=== PATIENT | male | born 1945 | race Caucasian/White ===

== ENCOUNTER 2021-07-21 19:50 | Observation (INO) | payer MEDICARE, SELFPAY ==
[2021-07-21 20:03] VITALS: BP 210/94; PULSE 97; RESP 17; TEMP 36.6; O2SAT 98; BMI 32.3
[2021-07-21] MEDS: GLUCAGON,HUMAN RECOMBINANT 1 MG/ML VIAL IV (20:30)
--- NOTE | 2021-07-21 21:39 | PC.NURSE ---
Pt with pork chop stuck in esophagus, tried glucagon with soda and failed to advance food.
[2021-07-21 21:48] LABS: Add Manual Diff / Slide Review NO; Basophils Absolute Auto 0 /uL (0-100); Basophils Percent Auto 0.3 % (0-2); Eosinophils Absolute Auto 100 /uL (0-450); Eosinophils Percent Auto 0.6 % (2-4); Hematocrit 35.8 % (41-53); Hemoglobin 12.1 g/dL (13.5-17.5); Lymphocytes Absolute Auto 1100 /uL (1100-4500); Lymphocytes Percent Auto 11.2 % (25-40); Mean Corpuscular HGB Conc 33.8 % (30-36); Mean Corpuscular Hemoglobin 29.8 PG (26-34); Mean Corpuscular Volume 88.2 fL (80-100); Monocytes Absolute Auto 600 /uL (0-900); Monocytes Percent Auto 6.4 % (3-14); Neutrophils Absolute Auto 8200 /uL (1500-7000); Neutrophils Percent Auto 81.5 % (50-75); Platelet Count 182 X10^3/uL (150-400); Red Blood Cell Count 4.06 X10^6/uL (4.5-5.9); Red Cell Distribution Width 13.9 % (11.6-14.8)
[2021-07-21 21:58] LABS: COVID19 -Nasal RAPID Negative (Negative)
[2021-07-21 22:05] LABS: BUN Creatinine Ratio 20.4 (6-22); Blood Urea Nitrogen 23 mg/dL (9-20); Calcium 9.4 mg/dL (8.4-10.2); Carbon Dioxide 28 mmol/L (22-32); Chloride 104 mmol/L (98-107); Estimated Glomerular Filt Rate > 60.0 mL/min (>60); Glucose 158 mg/dL (80-110); HEMOLYSIS 35 (0-50); Potassium 4.1 mmol/L (3.4-5.1); Sodium 140 mmol/L (137-145)
--- NOTE | 2021-07-21 22:16 | ED.SKABFB ---
HPI - Skin/Abscess/Foreign Bdy General Chief complaint: Skin/Abscess/Foreign Body Stated complaint: food stuck in bottom of esophagus Time Seen by Provider: 07/21/21 21:28 Source: patient Mode of arrival: Ambulatory History of Present Illness HPI narrative: 76-year-old male who is here for evaluation of what he thinks is a piece of food stuck in his esophagus. He states that he is missing quite a bit of his teeth and he did take a rather large bite of a pork chop. He did not chew it very well. Swallowed it he states that felt like it got stuck in his throat. Since that time he has been spitting up his saliva. He tried warm soda at home. Tried to make himself throw up another these were successful. He is having no problems breathing. He does have a history of reflux disease. Has never had endoscopy before. Has had issues with things getting stuck in the past but he states that he has always been able to make himself throw up and take care of the situation. Related Data Home Medications Medication Instructions Recorded Confirmed aspirin 81 mg tablet,delayed 81 mg PO DAILY 07/21/21 07/21/21 release finasteride 5 mg tablet 5 mg PO DAILY 07/21/21 07/21/21 losartan 25 mg tablet 25 mg PO DAILY 07/21/21 07/21/21 simvastatin 40 mg tablet 40 mg PO DAILY 07/21/21 07/21/21 terazosin 10 mg capsule 10 mg PO DAILY 07/21/21 07/21/21 Allergies Allergy/AdvReac Type Severity Reaction Status Date / Time No Known Drug Allergies Allergy Verified 07/21/21 20:05 Review of Systems ENT Ears, Nose, Mouth, and Throat: Reports system reviewed and no additional complaints, except as documented Cardiovascular Cardiovascular: Denies chest pain Respiratory Respiratory: Reports as per HPI and Reports system reviewed and no additional complaints, except as documented Gastrointestinal Gastrointestinal: Reports as per HPI and Reports system reviewed and no additional complaints, except as documented Hematologic/Lymphatic On Anticoagulants: No Patient History Medical History Hypertension Surgical History H/O aortic valve replacement with tissue graft Social History Smoking Status: Never smoker Smoking Status: Never smoker alcohol intake frequency: other Substance Use Type: does not use Exam Initial Vital Signs Initial Vital Signs: Vital Signs Temperature 98 F 07/21/21 20:03 Pulse Rate 97 H 07/21/21 20:03 Respiratory Rate 17 07/21/21 20:03 Blood Pressure 210/94 H 07/21/21 20:03 Pulse Oximetry 98 07/21/21 20:03 HENMT Head: normal to inspection and normocephalic Resp Effort & Inspection: normal respiratory effort Auscultation: clear to auscultation bilaterally Cardio Rate: regular rate Rhythm: regular rhythm Heart Sounds: murmur Skin General: no rashes or lesions noted Neuro General: patient alert, patient awake and moves all extremities Extrem General: normal to inspection and capillary refill normal Psych Appearance: grossly normal and well kempt Course Orders Ordered: ED Orders 07/21/21 21:31 COVID19 -Nasal swab/Pre-Proc Stat 07/21/21 21:45 Basic Metabolic Panel Stat Complete Blood Count AUTO DIFF Stat Sodium Chloride (Normal Saline 0.9%) 1,000 mls @ 125 mls/hr IV CONT [place] Last Admin: 07/21/21 22:29 Dose: 125 mls/hr Documented by: SAMMI Discontinued Medications Glucagon (Glucagon,Human Recombinant 1 Mg/Ml Vial) 1 mg IV NOW ONE Stop: 07/21/21 20:25 Last Admin: 07/21/21 20:30 Dose: 1 mg Documented by: REILLY Vital Signs Vital signs: Vital Signs - 8 hr 07/21/21 20:03 07/21/21 22:36 Temperature 98 F Pulse Rate 97 H 86 Respiratory Rate 17 16 Blood Pressure 210/94 H 184/83 H Pulse Oximetry 98 95 MDM - Skin/Abscess/Foreign Bdy Lab Data Attestation: I reviewed the patient's lab results. Result diagrams: 07/21/21 21:45 07/21/21 21:45 Labs: Lab Results 07/21/21 07/21/21 07/21/21 Range/Units 21:31 21:45 21:45 WBC 10.0 (4.5-11.0) X10^3/uL RBC 4.06 L (4.5-5.9) X10^6/uL Hgb 12.1 L (13.5-17.5) g/dL Hct 35.8 L (41-53) % MCV 88.2 (80-100) fL MCH 29.8 (26-34) PG MCHC 33.8 (30-36) % RDW 13.9 (11.6-14.8) % Plt Count 182 (150-400) X10^3/uL Neut % (Auto) 81.5 H (50-75) % Lymph % (Auto) 11.2 L (25-40) % [place] % (Auto) 6.4 (3-14) % Eos % (Auto) 0.6 L (2-4) % Baso % (Auto) 0.3 (0-2) % Neut # (Auto) 8200 H (7374-4097) /uL Lymph # (Auto) 1100 (3519-0322) /uL [place] # (Auto) 600 (0-900) /uL Eos # (Auto) 100 (0-450) /uL Baso # (Auto) 0 (0-100) /uL Sodium 140 (137-145) mmol/L Potassium 4.1 (3.4-5.1) mmol/L Chloride 104 (98-107) mmol/L Carbon Dioxide 28 (22-32) mmol/L BUN 23 H (9-20) mg/dL Creatinine 1.13 (0.66-1.25) mg/dL Estimated GFR > 60.0 (>60) mL/min BUN/Creatinine Ratio 20.4 (6-22) Glucose 158 H (80-110) mg/dL Calcium 9.4 (8.4-10.2) mg/dL SARS-CoV-2 (PCR) Negative (Negative) MDM Narrative Medical decision making narrative: No respiratory distress. Attempted glucagon without any success. He has tried to make himself throw up at home it was also used warm soda at home without any success. Dr. Parr with General surgery made aware and will take to the operating room for endoscopy. Patient was aware of his diagnosis and need for endoscopy. He expressed understanding and agreement. Discharge Plan Departure Patient Disposition: Admitted as Observation Clinical Impression: Esophageal foreign body Admit Date/Time: 07/21/21 23:47 Admit Provider: Ramos Parr
[2021-07-21] MEDS: SODIUM CHLORIDE 0.9% 1,000 ML 125 ML IV (22:29)
[2021-07-21 22:36] VITALS: BP 184/83; PULSE 86; RESP 16; O2SAT 95
--- NOTE | 2021-07-21 23:55 | P.HP_ITS ---
History of Present Illness History of Present Illness Chief complaint: food stuck in bottom of esophagus Narrative: Patient is a gentleman who has 6 teeth. He admits to eating a dry pork chop which got stuck and he can not bring it up or get it to swallow through. He has had this happen before but usually can cough it up. He is not in any pain at this time though he is having to spit his saliva out. He is not anticoagulated as a bow vein valve was used for his aortic valve replacement. Patient History Medical History (Updated 07/21/21 @ 23:59 by Ramos Parr MD) Hypertension Surgical History (Updated 07/21/21 @ 23:57 by Ramos Parr MD) H/O aortic valve replacement with tissue graft Family & Social History Safety & Behavioral: Feels Safe in Current Yes Environment Been Physically Hurt or No Threatened By a Person Tobacco & Substance use: Smoking Status Never smoker alcohol intake frequency other Substance Use Type does not use Meds Home Medications and Allergies Home Medications Medication Instructions Recorded Confirmed Type aspirin 81 mg tablet,delayed 81 mg PO DAILY 07/21/21 07/21/21 History release finasteride 5 mg tablet 5 mg PO DAILY 07/21/21 07/21/21 History losartan 25 mg tablet 25 mg PO DAILY 07/21/21 07/21/21 History simvastatin 40 mg tablet 40 mg PO DAILY 07/21/21 07/21/21 History terazosin 10 mg capsule 10 mg PO DAILY 07/21/21 07/21/21 History Allergies Allergy/AdvReac Type Severity Reaction Status Date / Time No Known Drug Allergies Allergy Verified 07/21/21 20:05 Review of Systems Review of Systems Narrative: Patient denies cough or cold or asthma. No chest pain or history of heart attack. No black or bloody bowel movements. No seizures or blackouts. Exam Vital Signs (past 8 hours): - 07/21/21 20:03 07/21/21 22:36 Temperature 98 F Pulse Rate 97 H 86 Respiratory Rate 17 16 Blood Pressure 210/94 H 184/83 H Pulse Oximetry 98 95 Oxygen Delivery Method Room Air Narrative Exam Narrative: Pleasant gentleman in no distress. Missing all but a few lower teeth. Lungs are clear to auscultation no rales or rhonchi. Heart regular rate and rhythm. He may have a soft 1/6 systolic murmur best of at the left base. No radiation into the neck. Abdomen is protuberant soft nontender. Patient is alert and oriented. Each rate and content are appropriate. Objective Labs Result Diagrams: 07/21/21 21:45 07/21/21 21:45 Labs: Laboratory Results - last 24 hr 07/21/21 07/21/21 12 21:31 21:45 21:45 WBC 10.0 RBC 4.06 L Hgb 12.1 L Hct 35.8 L MCV 88.2 MCH 29.8 MCHC 33.8 RDW 13.9 Plt Count 182 Neut % (Auto) 81.5 H Lymph % (Auto) 11.2 L [place] % (Auto) 6.4 Eos % (Auto) 0.6 L Baso % (Auto) 0.3 Neut # (Auto) 8200 H Lymph # (Auto) 1100 [place] # (Auto) 600 Eos # (Auto) 100 Baso # (Auto) 0 Sodium 140 Potassium 4.1 Chloride 104 Carbon Dioxide 28 BUN 23 H Creatinine 1.13 Estimated GFR > 60.0 BUN/Creatinine Ratio 20.4 Glucose 158 H Calcium 9.4 SARS-CoV-2 (PCR) Negative Assessment & Plan Assessment and plan (1) Hypertension: Status: Acute (2) H/O aortic valve replacement with tissue graft: Status: Acute (3) Foreign body in esophagus: Status: Acute Assessment & Plan narrative: EGD under general anesthesia in order to protect his airway. I have discussed the procedure with him including risks of bleeding perforation which would necessitate a major operation and aspiration which could cause pneumonia. He appears to understand wishes to proceed. Time Spent With Patient Critical Care time: I spent a total of [] minutes of critical care time on this patient's care today; this time is exclusive of procedural time.
[2021-07-22] VITALS (11 sets, daily range): BP systolic 107–196; BP diastolic 64–107; PULSE 77–94; RESP 12–18; TEMP 36.8–36.9; O2SAT 88–97; BMI 32.3
--- NOTE | 2021-07-22 00:01 | PM.PREOP ---
Pre-operative Note COVID-19 COVID-19 status: Negative Result date/Date tested (Pos, Neg/Pending): 07/21/21 Interval Note History & Physical reviewed/Exam performed by Physician: Yes Changes to H&P: No
--- NOTE | 2021-07-22 01:11 | PM.OP.EGD ---
Operative Date/Time/Diagnoses Date of procedure: 07/22/21 Time of procedure: 01:11 Pre-op diagnosis: Obstructive esophagus due to a food bolus Post-op diagnosis: same Procedure & Clinicians Study performed: EGD and removal of foreign body. Same procedure as scheduled: Yes Indications: Obstruction of the esophagus from food Surgeon: Ramos Parr Procedure Notes SCOAP/Timeout: Performed Procedure in detail: Patient was placed supine on the operating room table underwent general endotracheal anesthesia to protect his airway from aspiration. A bite block was inserted adjacent to the T-tube as scope was advanced through it into the esophagus. In the distal esophagus there was an obvious food bolus. I attempted multiple maneuvers initially trying to snare it and removed it in pieces. I irrigated it and applied pressure but it would not pass through initially. I used a snared repeatedly removed small chunks of this food bolus and ultimately removed enough of it that it would pass into the stomach. Patient was noted to have ulceration of the esophagus that appeared to be superficial adjacent to the food bolus at the time of the initial visualization of the esophagus. While the esophageal mucosa was a bit edematous at completion there was no evidence of perforation. The stomach was examined and I could see no ulcers. The pyloric channel was mildly narrowed but patent. The duodenum was unremarkable to the 3rd part. The scope was brought back and the fluid within the stomach was suctioned out to reduce the risk of aspiration with extubation. There was no narrowing noted in the distal esophagus. Procedure took almost 30 minutes to perform. Sedation minutes: 0 (General anesthesia was used to protect the patient's airway from aspirating food particles and fluid in the esophagus.) Findings: other findings (Food obstructing the esophagus) Specimen(s): none sent Complications: none Post-procedure Recommendations: Other recommendation(s) (Pureed diet after 3 days of liquids.) Follow up: as needed Disposition: PACU
--- NOTE | 2021-07-22 01:32 | SUR.PHASEI ---
Dr Blancas notified of slight wheeze on right side. Incentive spirometer ordered.
--- NOTE | 2021-07-22 02:21 | SUR.PHASEII ---
Pt discharged to home with after stating readiness for discharge. Pt stood at bedside and dressed self, steady on feet. Tolerated warm water without problems. Denies SOB.
== END 2021-07-22 02:15 | disposition home or self-care (01) ==
LOC: ED 22:01 → AC 23:49
PROVIDERS: Admitting Provider Specialist; Emergency Provider Emergency Medicine; Referring Provider Emergency Medicine; Visit Provider Specialist
PROC: 0DJ08ZZ Inspection of Upper Intestinal Tract, Via Natural or Artificial Opening Endoscopic (ICD-10-PCS; CPT 43235; principal; 2021-07-22 00:30)
DX: T18.128A Food in esophagus causing other injury, initial encounter (principal); K22.10 Ulcer of esophagus without bleeding; Z95.4 Presence of other heart-valve replacement; I10 Essential (primary) hypertension; Z20.822 Contact with and (suspected) exposure to COVID-19
CPT/HCPCS: 43247; 80048; 85025; 87635; 96361; 96374; 99218; 99284; C9803; G0378; J0330; J1610; J2704

== ENCOUNTER 2024-06-29 19:55 | Observation (INO) | payer OTHER, SELFPAY ==
[2024-06-29 20:05] VITALS: BP 182/84; PULSE 94; RESP 18; TEMP 36.8; O2SAT 98; BMI 32.3
--- NOTE | 2024-06-29 20:10 | PC.NURSE ---
Pt has food bolus stuck, hx of the same in 2020.
--- NOTE | 2024-06-29 20:33 | ED.GENADULT ---
HPI - General Adult General Chief complaint: Dental/Oral Stated complaint: food stuck in throat- cant drink anything Time Seen by Provider: 06/29/24 20:33 Source: patient Mode of arrival: Ambulatory History of Present Illness HPI narrative: Past medical history of hypertension, history of food bolus in the esophagus comes into the ED for evaluation food bolus. States that earlier today he was eating a stool, swallowed some meat and potatoes and now feels like it is stuck in his upper chest. He has not complaining of any difficulty breathing, states that he can not keep anything down, states that when he tries to drink anything come straight up. He states that he does have a history of some minor esophageal strictures but otherwise no other complaints at this time. Related Data Home Medications Medication Instructions Recorded Confirmed aspirin 81 mg tablet,delayed 81 mg PO DAILY 07/21/21 07/21/21 release finasteride 5 mg tablet 5 mg PO DAILY 07/21/21 07/21/21 losartan 25 mg tablet 25 mg PO DAILY 07/21/21 07/21/21 simvastatin 40 mg tablet 40 mg PO DAILY 07/21/21 07/21/21 terazosin 10 mg capsule 10 mg PO DAILY 07/21/21 07/21/21 Allergies Allergy/AdvReac Type Severity Reaction Status Date / Time No Known Drug Allergies Allergy Verified 07/21/21 20:05 Review of Systems Review of Systems Narrative: General: Positive food bolus, Denies fever, chills, weight loss HEENT: Denies headache, eye drainage, eye irritation, head trauma, sore throat, voice change Cardiovascular: Denies any chest pain, palpitations, shortness of breath, tachycardia Respiratory: Denies any shortness of breath, cough, wheeze, stridor GI/: Denies any abdominal pain, nausea, vomiting, diarrhea, bright red blood per rectum, melanotic stools, urinary frequency, urinary retention, dysuria, hematuria MSK: Denies any joint pain, muscle pains, swelling Skin: Denies any rashes, lesions, discoloration Neuro: Denies any headache, lightheadedness, dizziness, fainting, weakness Psych: Denies SI/HI Patient History Medical History Hypertension Surgical History H/O aortic valve replacement with tissue graft Social History Smoking Status: Never smoker Smoking Status: Never smoker alcohol intake frequency: other Substance Use Type: does not use Exam Narrative Exam Narrative: General: Cooperative, comfortable, well-developed, not in acute distress HEENT: Normocephalic, atraumatic, PERRLA, normal sclera, eyelids normal, he is tolerating his secretions, speaking full sentences protecting airway Neck: Active full range of motion, atraumatic Chest: Normal to inspection, negative crepitus, no overlying erythema ecchymosis Respiratory: Normal respiratory effort, not in acute respiratory distress, clear to auscultation bilaterally negative cough, wheeze, tachypnea, rhonchi, rales Cardiology: Regular rate rhythm negative gallop, murmur, rubs GI/: Normal to inspection, soft, nonrigid, no tenderness to palpation, exam deferred MSK: Full range of active range of motion of all 4 extremities, atraumatic Skin: No rashes lesions noted Neuro: Alert awake oriented x3, moves all 4 extremities spontaneously, cranial nerves intact, able to answer all questions appropriately follows commands appropriately Psych: Cooperative, negative suicidal or homicidal ideations Initial Vital Signs Initial Vital Signs: Vital Signs Temperature 98.2 F 06/29/24 20:05 Pulse Rate 94 H 06/29/24 20:05 Respiratory Rate 18 06/29/24 20:05 Blood Pressure 182/84 H 06/29/24 20:05 Pulse Oximetry 98 06/29/24 20:05 Oxygen Delivery Method Room Air 06/29/24 20:05 Course Orders Ordered: ED Orders 06/29/24 20:57 XR chest 1V Stat 06/29/24 21:10 CBC No Diff [Complete Blood Count NO DIFF] Stat CMP [Comprehensive Metabolic Panel] Stat MAG [Magnesium] Stat Discontinued Medications Glucagon (Glucagon,Human Recombinant 1 Mg/Ml Vial) 1 mg IV NOW ONE Stop: 06/29/24 20:31 Last Admin: 06/29/24 20:35 Dose: 1 mg Documented By: ES Ondansetron HCl (Ondansetron 4 Mg/2 Ml Inj) 4 mg IV NOW ONE Stop: 06/29/24 20:58 Last Admin: 06/29/24 21:07 Dose: 4 mg Documented By: ES Vital Signs Vital signs: Vital Signs - 8 hr 06/29/24 20:05 06/29/24 21:02 06/29/24 21:30 Temperature 98.2 F Pulse Rate 94 H 100 H 88 Respiratory Rate 18 Blood Pressure 182/84 H Pulse Oximetry 98 93 93 Oxygen Delivery Method Room Air 06/29/24 21:30 Temperature Pulse Rate Respiratory Rate Blood Pressure 158/72 H Pulse Oximetry Oxygen Delivery Method Medical Decision Making Differential Diagnosis Differential Diagnosis: Food bolus, esophageal stricture Lab Data 06/29/24 21:10 06/29/24 21:10 Labs: Lab Results 06/29/24 Range/Units 21:10 WBC 5.8 (4.5-11.0) X10^3/uL RBC 4.15 L (4.5-5.9) X10^6/uL Hgb 12.2 L (13.5-17.5) g/dL Hct 37.8 L (41-53) % MCV 91.2 (80-100) fL MCH 29.4 (26-34) PG MCHC 32.3 (30-36) % RDW 14.4 (11.6-14.8) % Plt Count 224 (150-400) X10^3/uL Sodium 136 L (137-145) mmol/L Potassium 3.9 (3.4-5.1) mmol/L Chloride 104 (98-107) mmol/L Carbon Dioxide 27 (22-32) mmol/L BUN 22 H (9-20) mg/dL Creatinine 1.14 (0.66-1.25) mg/dL Estimated GFR > 60 (>60) mL/min BUN/Creatinine Ratio 19.3 (6-22) Glucose 176 H (80-110) mg/dL Calcium 9.2 (8.4-10.2) mg/dL Magnesium 2.0 (1.6-2.3) mg/dL Total Bilirubin 0.3 (0.2-1.3) mg/dL AST 18 (17-59) IU/L ALT 18 (<50) IU/L Alkaline Phosphatase 67 (38-126) U/L Total Protein 7.2 (6.3-8.2) g/dL Albumin 4.2 (3.5-5.0) g/dL Globulin 3.0 (1.7-4.1) g/dL Albumin/Globulin Ratio 1.4 (1.0-2.8) Imaging Data Chest x-ray: Radiologist's Impression: [facility] [place] [id number] XRay Report Signed Patient: Arjun Buchanan MR#: [id number] : 1945 Acct:[id number] Age/Sex: 79 / M Date of Service: 06/29/24 Loc: ED Accession Number: [id number] Procedure: XR chest 1V Ordering Provider: Tom Cuevas D.O. PROCEDURE: XR CHEST 1V INDICATIONS: chest pain, food bolus TECHNIQUE: One view of the chest was acquired. COMPARISON: None. FINDINGS: Surgical changes and devices: Median sternotomy wires are seen. Lungs and pleura: Linear scarring/atelectasis in right upper to midlung field is seen. No pleural effusions or pneumothorax. Mediastinum: Mediastinal contours appear normal. Heart size is normal. Bones and chest wall: No suspicious bony lesions. Overlying soft tissues appear unremarkable. IMPRESSION: No acute cardiopulmonary pathology. MDM Narrative Medical decision making narrative: Patient is a 79-year-old male history of hypertension and food bolus requiring EGD presents for nausea vomiting secondary to possible food bolus. He states he was eating still with median potatoes prior to arrival felt like it got stuck into his chest, has been unable to swallow any liquids or solids since then. At evaluation here patient spitting in bag however tolerating secretions 2057: Attempted glucagon at bedside here, patient with significant amount of nausea, patient vomiting, slightly blood-streaked, will obtain imaging lab work, patient most likely will require admission for EGD 2157: Discussed case with general surgeon Dr. Grimes, accepts the admission for EGD in the a.m. Discharge Plan Departure Patient Disposition: Admitted as Observation Clinical Impression: Dysphagia, Foreign body in esophagus Prescriptions: No Action aspirin 81 mg Tablet,Delayed Release (Dr/Ec) 81 mg PO DAILY simvastatin 40 mg Tablet 40 mg PO DAILY losartan 25 mg Tablet 25 mg PO DAILY terazosin 10 mg Capsule 10 mg PO DAILY finasteride 5 mg Tablet 5 mg PO DAILY Admit Date/Time: 06/29/24 21:54 Admit Provider: Leo Grimes
[2024-06-29] MEDS: GLUCAGON,HUMAN RECOMBINANT 1 MG/ML VIAL IV (20:35)
--- NOTE | 2024-06-29 20:57 | DI.RAD.S_ITS ---
PROCEDURE: XR CHEST 1V INDICATIONS: chest pain, food bolus TECHNIQUE: One view of the chest was acquired. COMPARISON: None. FINDINGS: Surgical changes and devices: Median sternotomy wires are seen. Lungs and pleura: Linear scarring/atelectasis in right upper to midlung field is seen. No pleural effusions or pneumothorax. Mediastinum: Mediastinal contours appear normal. Heart size is normal. Bones and chest wall: No suspicious bony lesions. Overlying soft tissues appear unremarkable. IMPRESSION: No acute cardiopulmonary pathology. Dictated by: Dominick Griffin M.D. on 06/29/2024 at 21:24 Approved by: Dominick Griffin M.D. on 06/29/2024 at 21:25
[2024-06-29 21:02] VITALS: PULSE 100; O2SAT 93
[2024-06-29] MEDS: ONDANSETRON 4 MG/2 ML INJ IV (21:07)
[2024-06-29 21:21] LABS: Hematocrit 37.8 % (41-53); Hemoglobin 12.2 g/dL (13.5-17.5); Mean Corpuscular HGB Conc 32.3 % (30-36); Mean Corpuscular Hemoglobin 29.4 PG (26-34); Mean Corpuscular Volume 91.2 fL (80-100); Platelet Count 224 X10^3/uL (150-400); Red Blood Cell Count 4.15 X10^6/uL (4.5-5.9); Red Cell Distribution Width 14.4 % (11.6-14.8); White Blood Cell Count 5.8 X10^3/uL (4.5-11.0)
[2024-06-29 21:30] VITALS: BP 158/72; PULSE 88; O2SAT 93
[2024-06-29 21:32] LABS: Alanine Aminotransferase 18 IU/L (<50); Albumin 4.2 g/dL (3.5-5.0); Albumin Globulin Ratio 1.4 (1.0-2.8); Alkaline Phosphatase 67 U/L (38-126); Aspartate Aminotransferase 18 IU/L (17-59); BUN Creatinine Ratio 19.3 (6-22); Bilirubin Total 0.3 mg/dL (0.2-1.3); Blood Urea Nitrogen 22 mg/dL (9-20); Calcium 9.2 mg/dL (8.4-10.2); Carbon Dioxide 27 mmol/L (22-32); Chloride 104 mmol/L (98-107); Estimated Glomerular Filt Rate > 60 mL/min (>60); Glucose 176 mg/dL (80-110); HEMOLYSIS < 15 (0-50); Potassium 3.9 mmol/L (3.4-5.1); Sodium 136 mmol/L (137-145); Total Protein 7.2 g/dL (6.3-8.2)
[2024-06-29 22:00] VITALS: BP 157/75; PULSE 92; RESP 18; O2SAT 93
[2024-06-29] MEDS: METOCLOPRAMIDE 10 MG/2 ML INJ IV (22:09)
[2024-06-29 22:50] VITALS: BP 152/85; PULSE 90; RESP 14; TEMP 37.1; O2SAT 96
[2024-06-29 23:25] VITALS: BMI 32.3
[2024-06-30 04:00] VITALS: BP 153/75; PULSE 90; RESP 16; TEMP 37.2; O2SAT 92
[2024-06-30 08:00] VITALS: BP 129/70; PULSE 81; RESP 17; TEMP 37.5; O2SAT 94
[2024-06-30] MEDS: SODIUM CHLORIDE 0.9% FLUSH 10 ML IV (08:09)
--- NOTE | 2024-06-30 11:32 | P.HP_ITS ---
History of Present Illness History of Present Illness Date Patient Seen: 06/30/24 Time Patient Seen: 11:32 Chief complaint: food stuck in throat- cant drink anything Narrative: 79-year-old man history of esophageal foreign body obstruction who presents with inability to swallow. He presented to the [facility] Emergency room last night with inability to swallow after eating. He is tolerating his own secretions. He was admitted for observation and possible EGD. Since admission he reports improvement he is now able to swallow water. [facility] Medical History Hypertension Surgical History H/O aortic valve replacement with tissue graft Social History household members: spouse Smoking Status: Never smoker alcohol intake: never Meds Home Medications and Allergies Home Medications Medication Instructions Recorded Confirmed Type aspirin 81 mg tablet,delayed 81 mg PO DAILY 07/21/21 06/29/24 History release finasteride 5 mg tablet 5 mg PO DAILY 07/21/21 06/29/24 History losartan 25 mg tablet 25 mg PO DAILY 07/21/21 06/29/24 History simvastatin 40 mg tablet 40 mg PO BEDTIME 07/21/21 06/29/24 History terazosin 10 mg capsule 10 mg PO BEDTIME 07/21/21 06/29/24 History Adults Multivitamin 1 tab PO DAILY 06/29/24 06/29/24 History Allergies Allergy/AdvReac Type Severity Reaction Status Date / Time No Known Drug Allergies Allergy Verified 07/21/21 20:05 Exam Vital Signs (past 8 hours): - 06/30/24 04:00 06/30/24 08:00 Temperature 99.0 F 99.5 F Pulse Rate 90 81 Respiratory Rate 16 17 Blood Pressure 153/75 H 129/70 Pulse Oximetry 92 94 Oxygen Flow Rate 0 0 Oxygen Delivery Method Room Air Oxygen Flow Rate 0 Narrative Exam Narrative: General adult man alert oriented no acute distress Abdomen soft nontender nondistended Objective Labs 06/29/24 21:10 06/29/24 21:10 Labs: Laboratory Results - last 24 hr 06/29/24 21:10 WBC 5.8 RBC 4.15 L Hgb 12.2 L Hct 37.8 L MCV 91.2 MCH 29.4 MCHC 32.3 RDW 14.4 Plt Count 224 Sodium 136 L Potassium 3.9 Chloride 104 Carbon Dioxide 27 BUN 22 H Creatinine 1.14 Estimated GFR > 60 BUN/Creatinine Ratio 19.3 Glucose 176 H Calcium 9.2 Magnesium 2.0 Total Bilirubin 0.3 AST 18 ALT 18 Alkaline Phosphatase 67 Total Protein 7.2 Albumin 4.2 Globulin 3.0 Albumin/Globulin Ratio 1.4 Assessment & Plan Assessment and plan (1) Esophageal foreign body: Status: Acute Assessment & Plan narrative: 79-year-old male admitted with an esophageal foreign body which passed spontaneously. Tolerant of liquid diet. Appropriate for discharge. Return precautions provided for difficulty swallowing hematemesis worsening abdominal pain. Time-Based Coding :: [TOTAL MINUTES] spent with patient and on the chart (including review of chart, obtaining history, exam, reviewing outside data, placing orders, documenting exam and treatment plan, and counseling patient) on [DATE].
--- NOTE | 2024-06-30 11:49 | CM.DANOTE ---
Case received, EMR reviewed and met with patient. Introduced self and role. Was able to complete DCP assessment based upon information currently available. Patient is an 79 year old male who admitted yesterday evening to the care of the hospitalist team. PCP: CAILIN Mcgregor, community based. Payer: [employer]. Patient came to the hospital via private vehicle secondary to feeling like food was stuck in his throat. Notes indicate that patient had been eating some stew, and some food got stuck in his throat. He was able to breathe, but could not drink anything. Patient decided to come to the ER for treatment. He was to have a consult with Dr. Grimes. Surgeon had seen patient but symptoms had resolved. Indicated, diagnosed with esophageal foreign body, but stable for discharge today. Met with patient in his room. He is alert, pleasant. Confirmed that he resides in the [facility] with his spouse. He uses a cane to get around. He is no longer driving, spouse takes him to the store and appointments, due to his mobility issues with his knee. Confirms that he goes to the [facility] clinic in [facility], and is independent at baseline. P: Patient will discharge home, most likely today with no needs. Deisy Guevara RN/Optometric Aide Discharge Planning/Care Management CM Discharge Assessment Start: 06/30/24 11:47 Freq: Status: Active Protocol: Document 06/30/24 11:47 (Rec: 06/30/24 11:48 [id number]) Discharge Planning Assessment Assigned Freight Car Builder Deisy Guevara RN/Optometric Aide Advance Directives? No History Provided By Patient Has Patient been admitted in last 30 No days? Prior Living Arrangements House Household Members spouse Type of transporation used prior to Relies on Others admit Comment Patient uses a cane, and has some mobility issues with knee , so spouse drives him. Independent with ADL's Yes Is patient alert and oriented? Yes Needs Assistance With Home Chores / Shopping Caregiver for Another No DME Already Rented / Owned Cane Barriers to Discharge No Discharge Plan Home Transportation Arrangement Spouse Referrals Initiated None needed Review Status In Process Next Review Type Continued Stay Review
--- NOTE | 2024-06-30 13:29 | PC.NURSE ---
Pt d/c teaching down at bedside with present. Pt understands to f/u with PCP and it was recommened to discuss a poss. EGD. Patient denies any discomfort, pressure or feeling of food lodged any longer. IV was removed, pt lucero. well. Pt and spouse escorted down to private vehicle via WC. Patient leaves in stable condition.
== END 2024-06-30 12:40 | disposition home or self-care (01) ==
LOC: ED 20:33 → AC 21:55
PROVIDERS: Admitting Provider Surgery; Emergency Provider Student in an Organized Health Care Education/Training Program; PCP Nurse Practitioner Family; Referring Provider Student in an Organized Health Care Education/Training Program; Visit Provider Surgery
DX: T17.228A Food in pharynx causing other injury, initial encounter (principal)
CPT/HCPCS: 71045; 80053; 83735; 85027; 96374; 96375; 99283; 99284; G0378; J1610; J2405; J2765

== ENCOUNTER 2024-10-22 08:23 | Day surgery (SDC) | payer OTHER, SELFPAY ==
[2024-10-09 09:18] VITALS: BMI 32.4
[2024-10-22] VITALS (12 sets, daily range): BP systolic 117–147; BP diastolic 58–90; PULSE 74–84; RESP 12–18; TEMP 36.2–36.7; O2SAT 92–97; BMI 33.0
--- NOTE | 2024-10-22 06:00 | DI.RAD.S_ITS ---
PROCEDURE: XR KNEE RT 1TO2V INDICATIONS: TKA TECHNIQUE: 2 view(s) of the knee acquired. COMPARISON: None. FINDINGS: Bones: Patient is status post knee joint arthroplasty. Hardware components are in expected positions. Visualized bony structures are intact. Soft tissues: Overlying postoperative changes are noted. IMPRESSION: Expected post-operative appearance of a knee arthroplasty. Dictated by: Chelsea Ruffin MD, PhD on 10/23/2024 at 10:47 Approved by: Chelsea Ruffin MD, PhD on 10/23/2024 at 10:47
[2024-10-22] MEDS: CELECOXIB 200 MG CAPSULE 400 MG PO (09:27)
[2024-10-22] MEDS: ACETAMINOPHEN 325 MG TABLET 975 MG PO (09:27)
[2024-10-22] MEDS: LACTATED RINGERS 1,000 ML 42 ML IV (09:28)
[2024-10-22] MEDS: VANCOMYCIN 1,000 MG in SODIUM CHLORIDE 0.9% 250 ML 250 MG IV (09:59)
--- NOTE | 2024-10-22 10:44 | PM.OP.1 ---
Operative Date/Time/Diagnoses Date of procedure: 10/22/24 Time of procedure: 11:40 Pre-op diagnosis: Severe right knee OA Post-op diagnosis: same Procedure & Clinicians Procedure: Right total knee arthroplasty Same procedure as scheduled: Yes Indications: The patient has had progressively worsening right knee pain with radiographic changes consistent with arthritis. Non-operative management has failed and the patient has requested total knee replacement. The risks, benefits and alternatives to surgery were discussed with the patient prior to proceeding. Risks discussed included, but were not limited to, failure to relieve pain, stiffness, infection, nerve damage, deep venous thrombosis, pulmonary embolism, stroke, coma, heart attack, permanent paralysis and , as well as the potential need for eventual revision of the prosthetic. Surgeon: Leisa Trejo Scalehouse Attendant: Sintia Royal Anesthesia Type: General and Spinal Operative Notes Findings: Severe right knee OA, adequate bone, adequate stability Closure Type: primary Specimen(s): none sent Prosthetic devices, grafts, tissues, transplants, or devices: Trejo and nephjessica kemp BCS2 size 7 femur, size 5 tibia, +9 poly, 35 x 7 and a mm patella Estimated Blood Loss (mL): 250 Blood products transfused: none Tourniquet time (min): 79 Procedure in detail: The patient was seen in the pre-operative area, where the patient identified the right knee as the operative site and this was marked with my initials. The patient received pre-operative antibiotics, and was taken to the operating room and placed on the operative table in the supine position. After satisfactory anesthesia, a manager multimedia out was performed. The right leg was encircled with a tourniquet about the proximal thigh, and the leg was prepared from the toes to the tourniquet with ChloroPrep in the usual fashion and draped through sterile drapes. The leg was elevated and exsanguinated with Eschmark bandage and the tourniquet inflated to [250] mmHg pressure. A PA was used during the procedure and was essential for intraoperative retraction and safe implantation of the components. The knee was approached through an approximately 18 cm incision centered over the patella and carried into the knee through a medial parapatellar arthrotomy. Portion of the medial and lateral meniscus was resected. Soft tissue was carefully mobilized around the patella the patella was measured with a caliper. Bone was resected from the patella and the patellar height was reconstituted with up an appropriate sized patellar component. A cover was then placed on the patella. A small amount of additional medial and lateral meniscus was resected. Pins were placed for Cori robotic assisted navigation. The adjustable tibial guide was pinned to the tibia. A plan was taken and carefully developed to provide optimum range motion and stability. The Cori robotic bur was used for the distal femoral resection. It looked like an appropriate distal femoral cut and the cut was made without difficulty. The rotation was assessed and the appropriate size femoral guide was placed on the distal femur and finishing cuts were made. There was no evidence of notching. The anterior, posterior and chamfer cuts were then made. The posterior osteophytes and soft tissues were then removed. The posterior capsule was injected with part of a mixture of 60 ml 0.25% Marcaine mixed with 266 mg Exparel for post operative pain control. The remainder of this mixture was injected into the capsule and subcutaneous tissues during cement curing. The tibial guide was pinned to the proximal tibia and meticulously adjusted navigated with the robotic system. The proximal tibial cut was made without difficulty. The rotation was assessed. The patient was placed in extension residual medial and lateral meniscus as well as any residual bone was carefully resected. [No] additional tibia was resected. Hemostasis was achieved especially posteriorly. Additional local was injected into the posterior capsule. The extension gap was assessed. The femoral component was trial was placed and the notch was finished. Trial tibial and femoral components were then placed and the knee placed through a range of motion. Range of motion was [0-130], with good stability throughout the range. The trials were then removed, and the tibia was finished. The bone was prepared with pulsatile lavage, and dried with a sponge. Cement was applied and the final prosthetics placed. Excess cement was removed during and after cement curing. A brief Betadine soak was performed. After confirming there was no extruded cement posteriorly, the final tibial insert was placed. The knee was copiously irrigated and the tourniquet deflated. Hemostasis was obtained with the Bovie cautery. The capsule was closed with interrupted # 1 suture. The subcutaneous layer was closed with barbed sutures, and the skin with a running 3-0 V-Lock suture and Surgical glue. An Aquacel Ag dressing was applied and the patient was taken to recovery having tolerated the procedure well. Complications: none Post-operative Condition: stable Disposition: same day surgery Plan for aftercare: The patient will be maintained on a standard total knee replacement protocol with weight bearing as tolerated. The patient will receive aspirin and sequential compression devices for DVT prophylaxis. The patient will be discharged home when safe for the home environment.
[2024-10-22] MEDS: CEFAZOLIN 2 GM/100 ML PREMIX 100 ML IV ×2 (11:45→20:13)
[2024-10-22] MEDS: TRANEXAMIC ACID 1,000 MG VIAL 1000 MG INJ ×2 (11:55→13:23)
--- NOTE | 2024-10-22 12:06 | SUR.OPER ---
Supine on padded OR bed. Pillow under head, arms secured on padded armboards <90 degree abduction. Safety belt across torso. Non-operative leg secured with tape over blanket over lower leg. Operative leg secured in DeMayo/Jose/Nathe positioner. Foam padded brace at thigh of operative leg.
[2024-10-22] MEDS: BUPIVACAINE 0.25% W/ EPI 30 ML VIAL 60 ML INJ (12:11)
[2024-10-22] MEDS: BUPIVACAINE LIPOSOME 266 MG/20 ML VIAL INJ (12:11)
[2024-10-22] MEDS: HYDROMORPHONE 1 MG INJ IV ×4 (14:27→15:00)
[2024-10-22] MEDS: OXYCODONE IR 5 MG TABLET PO ×4 (14:49→23:03)
[2024-10-22] MEDS: LACTATED RINGERS 1,000 ML 100 ML IV (16:03)
[2024-10-22] MEDS: ACETAMINOPHEN 325 MG TABLET 650 MG PO (16:32)
[2024-10-22] MEDS: IBUPROFEN 400 MG TABLET PO (16:32)
--- NOTE | 2024-10-22 16:43 | PT-IP ANOTE ---
checked on pt but pt refused PT. stated that he just got up to the floor and does not feel that he is ready to do PT. spouse in room. obtained PLOF and home set up and post-op folder provided to pt. spouse will come in ~ 9am tomorrow.
[2024-10-22] MEDS: ONDANSETRON 4 MG ODT PO ×2 (18:00→23:03)
[2024-10-22] MEDS: DOCUSATE 100 MG CAPSULE PO (20:13)
[2024-10-22] MEDS: ASPIRIN EC 81 MG TABLET PO (20:13)
[2024-10-22] MEDS: ATORVASTATIN 20 MG TABLET PO (20:13)
[2024-10-23] MEDS: CALCIUM CARBONATE 500 MG TAB PO
[2024-10-23 00:33] VITALS: BP 115/64; PULSE 84; RESP 16; TEMP 36.6; O2SAT 98
[2024-10-23] MEDS: ACETAMINOPHEN 325 MG TABLET 650 MG PO ×2 (01:44→10:36)
--- NOTE | 2024-10-23 02:06 | PC.NURSE ---
Addendum entered by Katelynn Linares R.N. 10/23/24 06:21: 0600: Attempted to have pt get OOD to try to void again; pt refused. Scanned bladder; largest amount 228mL. Pt reported that vibrations/prodding made him feel like he needed to pee again. Pt voided 100mL; see I&O for shift total. Addendum entered by Katelynn Linares R.N. 10/23/24 05:38: 0530: Attempted to have pt OOB to try to void again; pt refused x2. Addendum entered by Katelynn Linares R.N. 10/23/24 05:32: 0300: Attempted to have pt OOB to try to void again; pt refused. Original Note: NOC: As of 206, pt OOB/stood at edge of bed x2 to try to void. Pt able to void 75mL + 75mL with some effort. Pt tolerated OOB well, 6/10 pain with movement but 3/10 when standing. Scanned pt bladder, highest residual was 219mL. Will continue to monitor. Pt sleeping comfortably, call light within reach, bed/low locked, plan of care continues.
[2024-10-23] MEDS: CEFAZOLIN 2 GM/100 ML PREMIX 100 ML IV (03:35)
[2024-10-23] MEDS: ONDANSETRON 4 MG/2 ML INJ IV (03:35)
[2024-10-23] MEDS: OXYCODONE IR 5 MG TABLET PO ×2 (04:00→07:02)
[2024-10-23 04:12] VITALS: BP 131/61; PULSE 80; RESP 16; TEMP 36.6; O2SAT 97
[2024-10-23] MEDS: PANTOPRAZOLE DR 20 MG TABLET PO (05:43)
[2024-10-23] MEDS: LACTATED RINGERS 1,000 ML 100 ML IV (05:43)
[2024-10-23 06:26] LABS: Hematocrit 32.8 % (41-53)
[2024-10-23 07:25] VITALS: O2SAT 98
--- NOTE | 2024-10-23 07:59 | PM.DS.1 ---
History of Present Illness History of Present Illness Date Patient Seen: 10/23/24 Time Patient Seen: 07:59 Chief complaint: R TKA *OPB* Narrative: The patient has had progressively worsening right knee pain with radiographic changes consistent with arthritis. Non-operative management has failed and the patient has requested total knee replacement. The risks, benefits and alternatives to surgery were discussed with the patient prior to proceeding. Risks discussed included, but were not limited to, failure to relieve pain, stiffness, infection, nerve damage, deep venous thrombosis, pulmonary embolism, stroke, coma, heart attack, permanent paralysis and , as well as the potential need for eventual revision of the prosthetic. Discharge Providers Provider Discharge Date: 10/23/24 Primary care physician: RACHNA Dugan Consults: 10/09/24 10:34 Consult to Anesthesiology Routine Comment: Consulting Provider: Anesthesiologist Reason for consultation: Surgeon request for multiple medical. 10/22/24 06:00 Consult to Anesthesiology Routine Comment: Consulting Provider: Anesthesiologist Reason for consultation: Regional block for post operative pain control Has provider been notified: No 10/22/24 15:28 Consult to Discharge Planning Routine Comment: Consult to Occupational Therapy Evaluate & Treat Comment: Physician Instructions: Evaluate and treat Consult to Physical Therapy Evaluate & Treat Comment: Physician Instructions: postop TKA protocol Discharge provider: Rufus Sanders PA-C Summary Hospital Course Discharge Diagnosis: Severe right knee OA Hospital Course: Procedure: Right total knee arthroplasty Same procedure as scheduled: Yes Surgeon: Leisa Trejo Molecular Technologist: Sintia Royal Anesthesia Type: General and Spinal Operative Notes Findings: Severe right knee OA, adequate bone, adequate stability Closure Type: primary Specimen(s): none sent Prosthetic devices, grafts, tissues, transplants, or devices: Trejo and nephew journey BCS2 size 7 femur, size 5 tibia, +9 poly, 35 x 7 and a mm patella Estimated Blood Loss (mL): 250 Blood products transfused: none Tourniquet time (min): 79 Status at Discharge Cognitive/behavioral status at discharge: oriented Functional status at discharge: uses cane/walker Overall status at discharge: patient is back to baseline Time Spent with Patient Time spent: Less than 30 minutes Exam Vital Signs (past 8 hours): - 10/23/24 00:33 10/23/24 04:12 10/23/24 07:25 Temperature 97.8 F 97.9 F Pulse Rate 84 80 Respiratory Rate 16 16 Blood Pressure 115/64 131/61 Pulse Oximetry 98 97 98 Oxygen Delivery Method Nasal Cannula Oxygen Flow Rate 2.5 2.5 2 Oxygen Delivery Method Nasal Cannula Oxygen Flow Rate 2 Narrative Exam Narrative: Patient's pain is controlled with oral medication. Pain is localized to surgical site. Patient declines any new numbness or tingling at the surgical extremity. Patient denies any shortness of breath, dizziness, light-headedness, fever or chills. Patient has had episodes of nausea and vomiting. No bowel movement. Abdomen bowel sounds present in all 4 quadrants decreased in left lower quadrant. Nontender to palpation. Dull to percussion in all 4 quadrants. 5/5 strength in hip flexors, quadriceps, hamstrings, DF, PF, EHL bilaterally. Sensation to light touch intact throughout BLE. Calves soft, compressible, nontender. Dressing placed intraoperatively CDI. 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 Discharge to home. Ambulate and weight bear as tolerated with assistive devices. Aspirin 81 mg twice a day for 6 weeks for DVT prevention. Baseline pain relief with acetaminophen 500mg every 4 hours as needed and ibuprofen 400 mg every 4 hours as needed. Patient has been prescribed oxycodone 5 mg every 4 hours as needed for breakthrough pain. Initiate physical therapy in the next 5-10 days. Keep dressing clean and dry. Keep dressing on until first office visit. If dressing becomes dirty or disrupted, replace with appropriate sized dressing. Follow up in clinic in 2 weeks for wound check. Contact clinic if there are any questions or concerns. Discharge Plan Discharge Plan Patient Disposition: Home Provider Discharge Comment: DC pending PT approval Discharge orders & Medications Discharge Orders: Discharge (Order); Ordered 10/23/24 Ordered By: Rufus Sanders Prescriptions: New oxycodone 5 mg capsule 5 mg PO Q4H PRN (Reason: pain) Qty: 30 0RF aspirin 81 mg capsule 81 mg PO BID Qty: 90 0RF Continued aspirin 81 mg Tablet,Delayed Release (Dr/Ec) 81 mg PO DAILY simvastatin 40 mg Tablet 40 mg PO BEDTIME losartan 25 mg Tablet 25 mg PO DAILY terazosin 10 mg Capsule 10 mg PO BEDTIME finasteride 5 mg Tablet 5 mg PO DAILY Adults Multivitamin tablet 1 tab PO DAILY omeprazole 20 mg Tablet,Delayed Release (Dr/Ec) 20 mg PO PRN PRN (Reason: GERD) Follow up/Referrals: Vivi Chavez ARNP [Primary Care Provider] - Diet/Activity/Treatments Diet: Diet as Tolerated Activity: Ambulate multiple times a day. Weightbearing as tolerated on the leg. Elevate leg if having problems with swelling. Okay to use a light compressive stocking. Cold/Heat Therapy: Use ice multiple times a day up to 10. Skin/Wound/Dressing Care Skin care: Okay to shower with deep dressing on. Report to your healthcare provider any signs of infection, such as:: chills, fever, night sweats, increased pain, unusual drainage and unusual redness Dressing: Remove Antonio wrap in 2 days. Leave deep dressing on. Visit Report/Discharge Packet Instructions: DI for Knee Replacement, DI for Prescription Opioid Use Stand Alone Forms: Patient Portal/API, Surgery Discharge Discharge Data Primary Care Provider: Vivi Chavez Attending Provider: Leisa Trejo
[2024-10-23 08:00] VITALS: BP 141/65; PULSE 82; RESP 16; TEMP 36.8; O2SAT 97
[2024-10-23] MEDS: METOCLOPRAMIDE 10 MG/2 ML INJ IV (08:00)
[2024-10-23 08:22] VITALS: BP 141/65; PULSE 82
[2024-10-23] MEDS: DOCUSATE 100 MG CAPSULE PO (08:22)
[2024-10-23] MEDS: ASPIRIN EC 81 MG TABLET PO (08:22)
[2024-10-23] MEDS: LOSARTAN 25 MG TABLET PO (08:22)
[2024-10-23] MEDS: FINASTERIDE 5 MG TABLET PO (08:22)
[2024-10-23] MEDS: polyethylene glycoL 3350 17 GM POWD.PACK PO (08:23)
--- NOTE | 2024-10-23 09:00 | PT.IIE ---
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) History of appendectomy Medical History (Last Updated 10/09/24 @ 09:30 by Shireen Fay, RN) BPH (benign prostatic hyperplasia) Chronic anemia Essential hypertension GERD (gastroesophageal reflux disease) H/O carcinoma in situ of prostate HLD (hyperlipidemia) Hypertension Murmur Pancreatic cyst Right bundle branch block TIA (transient ischemic attack) Physical Therapy Inpatient Evaluation/Re-Eval M1 PT/OT-IP Prior Functional Status Start: 10/22/24 16:42 Freq: NEEDED Status: Active Protocol: Document 10/23/24 11:53 [facility] (Rec: 10/23/24 12:03 [facility] [id number]) Medical Review Prior Functional Status Medical History Reviewed Yes Communication able to make needs known; [facility] Mobility and Gait pt stated that he is modified independent with use of FWW indoors and uses a SPC for outdoor mobility Activities of Daily Living and IADL's Pt able to do ADL needs and his assist as needed. Social History Household Members spouse Living Arrangements House Number of Stairs To Enter/Railing? 3 steps B rails to enter the house Home Environment Standard Height Toilet,Tub/ Shower Home Equipment Front Wheel Walker,Straight Cane,Raised Toilet Seat Without Armrests,Shower Seat without Backrest,Hand Held Shower,Hoop Flaring Machine Operator M2 PT-IP Current Condition Start: 10/22/24 16:42 Freq: NEEDED Status: Active Protocol: Document 10/23/24 09:00 AB (Rec: 10/23/24 12:13 AB [id number]) Physical Therapy Current Condition Current Condition Evaluation Date 10/23/24 Treatment Diagnosis s/p R TKA; difficulty in walking Onset Date 10/22/24 M3 PT-IP Subjective Start: 10/22/24 16:42 Freq: NEEDED Status: Active Protocol: Document 10/23/24 09:00 AB (Rec: 10/23/24 12:13 AB [id number]) Subjective Physical Therapy Visit Type Type Initial Evaluation Visit Start Time 09:00 Visit Stop Time 10:20 Number of RETAIL LOSS PREVENTION INVESTIGATOR Visits 0 Physical Therapy Visit Comments Patient Comments agreeable to do PT Therapy Pain Assessment Pain When Pain Assessed At Rest Location Right knee Intensity 4 Scale Used increases with mobility Pain Management Techniques Apply Cold,Distraction, Modification of Treatment,Re- positioning,Timing of Activity with Medications M4 PT-IP Mobility and Gait Start: 10/22/24 16:42 Freq: NEEDED Status: Active Protocol: Document 10/23/24 09:00 AB (Rec: 10/23/24 12:13 AB [id number]) PT-Bed Mobility Assessment Supine to Sit Supine to Sit Standby Assistance PT-Transfer Assessment Sit to and From Stand Sit to and from Stand Moderate Assistance,1 Person Assistance,Use of Upper Extremities Equipment Transfer Assistive Device Gait Belt,Front Wheeled Walker Orthotic/Prosthetic Devices or Brace: No Transfers Transfer Destination Chair,Toilet Transfer Technique ambulated Transfer Ability Level of Assist Moderate Assistance,1 Person Assistance,Use of Upper Extremities Comments Mobility Comments pt in bed and agreeable to do PT. BP: 128/56. spouse arrived. pt completed supine to sit SBA. able to sit on EOB SBA. c/o increase R knee pain. BP checked: 134/43. pt requested to use the toilet. sit to stand mod A and max cues. pt ambulated to the toilet using FWW mod A and max cues. cued for R quads activation. increase R knee flexion in standing. pt able to stand using FWW for support while using the toilet. pt ambulated out to the chair using FWW mod A and max cues. caregiver training conducted. educated spouse on how to use safety belt and how to assist pt. spouse was able to put safety belt on pt. assisted pt with sit to stand. PT provided cued. educated spouse to cue pt as needed. pt was able to ambulate in room using FWW ~ 25 ft mod A with spouse assisting. pt and spouse agreed to do stairs. spouse assisted pt with sit to stand and ambulated pt out from the room using fWW ~ 35 ft mod A. stair climbing training. educated spouse and pt and how to do stairs. pt completed up/down steps using B rails max A and max cues. PT provided cues to pt. informed spouse to provide pt cues for safety. spouse stated that she did not know that she has to. pt refused further stair training. assist pt back to his room and requested to use the toilet again. spouse assisted pt with sit to stand from w/c mod A and pt ambulated to the toilet using FWW mod A ~ 35 ft . spouse was able to assist pt with transfers and toileting needs. pt ambulated back to the chair using fWW with spouse assisting. positioned pt on the chair. call light and table placed within reach. educated pt and spouse again regarding safety and techniques with transfers, ambulation and stair climbing. pt and spouse stated that they are fine and no further concerns. Gait Assessment Gait Gait Assistance Required: Moderate Assistance,1 Person Assist Distance (Feet) 35 Able to Maintain Weight Bearing Status Yes During Gait Assistive Devices Assistive Device Gait Belt,Front Wheeled Walker Orthotic/Prosthetic Devices or Brace: No Gait Deviations General Gait Pattern Antalgic,Decreased Stride Length,Decreased Feet Clearance,Step-to Gait Factors Limiting Gait Function Factors Limiting Gait Function Decreased Activity Tolerance, Decreased Strength,Difficulty Following Directions,Limited Range of Motion,Pain,Poor Balance,Poor Safety Awareness Stair Climbing Assessment Evaluation Level of Assist On Stairs Maximal Assistance Devices Stair Climbing Assistive Devices Left Railing,Right Railing Technique/Endurance Stair Climbing Direction Ascend and Descend Stair Climbing Technique Step to Step Number of Steps Climbed 3 Query Text: Stair Climbing Set # Repetitions (reps) 1 PT-Balance Assessment Sitting Balance and Reactions Static Sitting Balance Ability Normal Dynamic Sitting Balance Ability Good Standing Balance and Reactions Static Standing Balance Ability Fair Dynamic Standing Balance Ability Poor Device Used FWW M5 PT-IP Objective Assessments Start: 10/22/24 16:42 Freq: NEEDED Status: Active Protocol: Document 10/23/24 09:00 AB (Rec: 10/23/24 12:13 AB [id number]) Orientation Orientation/Cognition Level of Alertness Alert Orientation Name Language Function Ability Hard of Hearing Safety Awareness Decreased Safety Awareness Memory Description Short Term Impaired Gross Range of Motion Lower Extremity ROM Assessment Right Impaired Impairments R knee flexion: ~ 60 deg R knee extension : ~ 20 deg less to 0 Strength Lower Extremity Strength Assessment Right Impaired Hip 3+/5 Knee 3+/5 Sensation Assessment Sensation Gross Sensation WNL Muscle Tone Muscle Tone WNL Yes M6 PT-IP Treatment Start: 10/22/24 16:42 Freq: NEEDED Status: Active Protocol: Document 10/23/24 09:00 AB (Rec: 10/23/24 12:13 AB [id number]) Physical Therapy Treatment Exercises Exercises Heel Slides Education Education Provided Precautions,Weight Bearing Status,Post-Op Packet,Safety M7 PT-IP Assessment and Plan Start: 10/22/24 16:42 Freq: NEEDED Status: Active Protocol: Document 10/23/24 09:00 AB (Rec: 10/23/24 12:13 [id number]) PT Summary Assessment and Plan Potential Rehabilitation Potential Fair Status of Condition at Evaluation Evolving Summary Impairments Pain,ROM,Strength,Balance, Coordination,Sensation,Tone, Cognition,Bed Mobility, Transfers,Gait,Activity Tolerance Assessment Summary pt is an 79 y/o M s/p R TKA POD 1. pt is WBAT on RLE. pt requiring SBA for bed mobility , mod A for transfers and ambulation using FWW and max A for stair climbing. caregiver training completed. pt plans to go home and spouse to assist him. Goals Bed Mobility Goal Independent Transfer Goal Standby Assistance,Front Wheeled Walker Gait Goal Standby Assistance,Front Wheel Walker Gait Distance 200 Other Goals up/down 3 steps B rails SBA Days to Meet Goals 5 Frequency of Treatment Frequency Of Treatment Twice a Day Treatment Plan Physical Therapy Treatment Plan Bed Mobility Training,Transfer Training,Gait Training, Therapeutic Exercise,Balance Retraining,Post Op Education, Discharge Planning,Hot or Cold Pack,Neuromuscular Re-ed, Coordination Retraining,Manual Therapy Weight Bearing Status Weight Bearing Status Weight Bear as Tolerated Allowed Weight Bearing Amount (enter % RLE WBAT or #) (%) Recommendations To Nursing Amount of Assist Needed 1 Person Assist Discharge Recommendations PT Discharge Recommendations Home with Assistance, Outpatient PT Transportation Needs at Discharge Private Vehicle - PT assist 1PA
--- NOTE | 2024-10-23 10:25 | CM.DANOTE ---
Initial DCP Assessment Visit Note Reviewed EMR and team rounds for status updates. Met with pt at bedside to introduce self and role, pt was found to be alert/oriented, eating his breakfast. He states that his pain is well controlled, and that his and dtr are here to transport him home later today after he was worked with PT. Pt lives modified independently in his own home with his in Monday. [employer] will provide them with a Medical Priority Boarding Pass due to no reservations available for today's [employer] to [facility]. Pt denies any CM d/c needs other than the ferry pass at this time. Payor: Medicare Attending: Dr. Trejo Pt is a 85 year-old M post-op day 1 from a L-total hip arthroplasty surgery. Pt did not have have postoperative complications, he has good pain control, and has a plan for both Ortho post-op f/u, as well as OP PT visits. Pt has a hx of worsening L-hip pain despite having had several pain injections that only provided short-lived benefits. He uses both a cane and a walker at baseline for mobility, and has all other DME at home for continued recovery needs. No further DCP needs are identified at this time. Discharge Planning/Care Management Advanced directive, confirm from FAMILY Start: 10/22/24 16:55 Freq: Q24H Status: Active Protocol: Document 10/22/24 16:55 LW (Rec: 10/22/24 18:10 LW [id number]) Advance Directive, confirm on record Time 18:09 Person contacted pt Copy received No CM Discharge Assessment Start: 10/23/24 08:26 Freq: Status: Active Protocol: Document 10/23/24 08:26 DPL (Rec: 10/23/24 09:26 DPL [id number]) Discharge Planning Assessment Assigned Asphalt Paver ANDREINA Bryant Advance Directives? Yes Advance Directives on File Yes History Provided By Patient,Medical Record Has Patient been admitted in last 30 No days? Prior Living Arrangements House Household Members spouse Type of transporation used prior to Drives own vehicle admit Independent with ADL's No: modified with use of a walker Is patient alert and oriented? Yes Caregiver for Another No DME Already Rented / Owned Elevated Toilet Seat,FWW / Walker,Cane Patient/Family Preference OP PT Therapy Barriers to Discharge No Discharge Plan Home Transportation Arrangement Spouse Referrals Initiated None needed Review Status In Process Please Provide Date Initial DC 10/23/24 Assessment Was Performed Pre-Anesthesia Assessment Start: 10/09/24 09:18 Freq: Status: Active Protocol: Document 10/09/24 09:18 LB (Rec: 10/09/24 10:34 LB [id number]) Pre-Anesthesia Assessment PAC Comment 09/29/24 Phone assessment. Patient Information Reviewed Via Phone Assessment Assessment Completed With Patient Diagnostic Results BMP/CMP,CBC,EKG,Urinalysis Comment 08/30/24 outside results. Primary Care Provider Cherry Alexandre Medical Clearance Received Yes Seen Specialist in Last 12 Months Yes Specialist Seen Orthopedist Primary Language Hungarian Preferred Language Hungarian Storage Administrator Required No Height 177.8 cm Weight 102.512 kg Body Mass Index (BMI) 32.4 Hearing Ability Normal Visual Assist Glasses Dentition Type Teeth, Natural Present Barriers to Learning None Other Aids No Hx Anesthesia Reactions No Hx Family Anesthesia Reaction No Hx Malignant Hyperthermia No Hx Blood Transfusions No Anesthesia Review Requested Yes: Surgeon request for multiple medical. Chemical Economist No alcohol intake never Smoking Status Never smoker Substance Use Type [#R] does not use Musculoskeletal Symptoms Difficulty Walking,Joint Pain Patient is completely paralyzed or No completely immobile Prosthesis or Orthotic Device Cane,Front Wheel Walker Mental Status Oriented to own ability Comment Will bring walker. Is patient on oxygen? No Does patient have HULL/SOB Yes Hx Sleep Apnea No Currently Taking a Beta Jessica No Hx Chest Pain No Hx SOB Yes Hx Syncope or Dizziness No Anti-Coagulant Therapy Yes: Aspirin 81mg qd - will check with surgeon when to hold. Has a Joint Sealer No Cardiac Testing Yes: Echo 11/2021. Hx Pacemaker/ICD No Dysphagia Yes: Sometimes, I have narrowing of the esophagus. Gastrointestinal Symptoms Dysphagia,Reflux Bladder Pattern Frequency,Nocturia Urinary Catheter Present No Hx Urinary Self Catheterization No Diabetes No HgbA1C 5.8 Date 08/30/24 Hx Drug Resistant Organism No Presence of External or Internal Medical Yes: Aortic valve. Devices Have you had any close contact with No someone diagnosed with COVID-19? Are you experiencing any of these No symptoms symptoms? Received a COVID vaccine? Yes Comment Denies covid last 8 weeks. Marital Status Lives With spouse Current Living Arrangements House Number of Floors (Floors) One Floor Number of Stairs To Enter/Railing? 3 stairs with railing to enter . Support System Spouse Does the Patient Have Assistance After Yes Surgery Patient Discharge Plan Description Return Home Additional comment Same day surgery. Feels Safe in Current Environment Yes Do you have a plan to hurt yourself or No Plan others? Do You Have Any Spiritual Beliefs That No May Affect Your HC Choices? Do You Have Any Cultural Practices That No May Affect Your HC Choices? Emergency Contact Name Kath Buchanan - Emergency Contact Advance Directives? No Power of Donkey Doctor No PAC Instructions Assistance for 24 hours post- op,Do not shave/clip surgical site,Durable medical equipment ,Medications to take/avoid, Nasal antibiotic,No ETOH/ petroleum product on skin DOS, NPO,Post-op transportation,Pre -surgical wash,Sensory aids, Sturdy shoes/comfortable clothes,Do not bring valuables and remove jewelry
[2024-10-23] MEDS: IBUPROFEN 400 MG TABLET PO (10:37)
--- NOTE | 2024-10-23 11:50 | OT.IP.EVAL ---
Current Diagnoses Unilateral primary osteoarthritis, right knee (10/22/24) Pain in right knee (10/22/24) Surgery Performed Operation Date: 10/22/24 10:45 Actual Procedures p Total Knee Arthroplasty - Robot(Right) - Leisa Trejo MD Past Medical History (Last Updated 10/09/24 @ 09:30 by Shireen Fay, RN) BPH (benign prostatic hyperplasia) Chronic anemia Essential hypertension GERD (gastroesophageal reflux disease) H/O carcinoma in situ of prostate HLD (hyperlipidemia) Hypertension Murmur Pancreatic cyst Right bundle branch block TIA (transient ischemic attack) Surgical History (Last Updated 10/09/24 @ 10:24 by Shireen Fay, RN) H/O aortic valve replacement with tissue 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) History of appendectomy Occupational Therapy Inpatient Evaluation/Re-Eval M1 PT/OT-IP Prior Functional Status Start: 10/22/24 16:42 Freq: NEEDED Status: Active Protocol: Document 10/23/24 11:53 [facility] (Rec: 10/23/24 12:03 [facility] [id number]) Medical Review Prior Functional Status Medical History Reviewed Yes Communication able to make needs known; [place] Mobility and Gait pt stated that he is modified independent with use of FWW indoors and uses a SPC for outdoor mobility Activities of Daily Living and IADL's Pt able to do ADL needs and his assist as needed. Social History Household Members spouse Living Arrangements House Number of Stairs To Enter/Railing? 3 steps B rails to enter the house Home Environment Standard Height Toilet,Tub/ Shower Home Equipment Front Wheel Walker,Straight Cane,Raised Toilet Seat Without Armrests,Shower Seat without Backrest,Hand Held Shower,Neonatal Doctor M2 OT-IP Current Condition Start: 10/23/24 11:53 Freq: Status: Active Protocol: Document 10/23/24 11:53 [facility] (Rec: 10/23/24 12:03 [facility] [id number]) Occupational Therapy Current Condition Current Condition Evaluation Date 10/23/24 Treatment Diagnosis S/P R TKA M3 OT- IP Subjective and Pain Start: 10/23/24 11:53 Freq: Status: Active Protocol: Document 10/23/24 11:53 [facility] (Rec: 10/23/24 12:03 [facility] [id number]) OT- Subjective Occupational Therapy Visit Type Type Initial Evaluation Visit Start Time 11:20 Visit Stop Time 11:50 Occupational Therapy Visit Comments Patient Comments Pt agreed to get dressing and use the toilet. Pt's present for caregiver training . Patient/Caregiver Goals TO go home. OT Pain Assessment Pain When Pain Assessed At Rest Pain Present Pain Present Pain Reported Location Right knee Intensity 6 Scale Used Numeric (0 - 10) M4 OT- IP ADL's Start: 10/23/24 11:53 Freq: Status: Active Protocol: Document 10/23/24 11:53 [facility] (Rec: 10/23/24 12:03 [facility] [id number]) OT KEP-Jlol-Nigoqen General Evaluation Self-Feeding Ability Independent OT ADL-Grooming Comments OT Grooming Comments Not performed. OT ADL-Oral Care Comments Oral Care Comments NOt performed. OT ADL-Dressing General Eval Lower Body Dressing Ability Maximum Assistance Areas Needing Assistance Underpants/Brief,Pants/Shorts, Socks,Shoes Comments OT Dressing Comments Educated to dress the RLE first and take out last. OT ADL-Toileting General Evaluation Toileting Ability Minimal Assistance Areas Needing Assistance Manage Clothing,Perform Perineal Hygiene Comments OT Toileting Comments Suggested and tried use of BSC to increase ease to come to stand. Pt is heavily dependent on his BUE to come to stand. OT ADL-Bathing Comments OT Bathing Comments Suggested pt get a tub transfer bench. Spoke of bandage care while showering. M5 OT- IP IADL's Start: 10/23/24 11:53 Freq: Status: Active Protocol: Document 10/23/24 11:53 [facility] (Rec: 10/23/24 12:03 [facility] [id number]) OT-Instrumental Activities of Daily Living Home Safety Awareness Awareness of Need for Assistance at Home Good Awareness Ability to Problem Solve Emergency Able to Problem Solve Situations Meal Preparation Meal Preparation Caregiver Provides Assist Shot Coat Tender Shot Coat Tender Caregiver Provides Assist M6 OT- IP Functional Cognition Start: 10/23/24 11:53 Freq: Status: Active Protocol: Document 10/23/24 11:53 [facility] (Rec: 10/23/24 12:03 [facility] [id number]) Cognitive Factors Limiting Selfcare Function Cognitive Ability Level of Alertness Alert Patient Orientation Name,Age,Birthday,Month,Date, Year,Day of Week,Place, Situation Attention Span Ability Capable of Focused Attention, Capable of Sustained Attention Ability to Follow Commands Able to Follow One Step Commands Cognitive Comments Cognitive Assessment Comments Pt needing vc to push up from surfaces when coming to stand and take his time. OT- Vision and Hearing OT- Hearing Assessment OT- Hearing Assessment WFL OT- Vision Assessment Visual Acuity Glasses All The Time Visual Attentiveness WFL Occular Pursuits WFL M7 OT- IP Mobility and Balance Start: 10/23/24 11:53 Freq: Status: Active Protocol: Document 10/23/24 11:53 [facility] (Rec: 10/23/24 12:03 [facility] [id number]) OT-Transfer Assessment Sit to and From Stand Sit to and from Stand Contact Guard Assistance, Minimal Assistance Transfers Transfer Ability Contact Guard Assistance Technique Transfer Destination Bed,Bedside Commode Comments Mobility Comments Pt's educated to hao/ doff the gait belt and how to assist pt to stand and transfer with FWW. Went over car transfer and may be helpful to have a trash bag on the cloth seat to help get into and out of the car. OT- Balance Assessment Sitting Balance and Reactions Static Sitting Balance Ability Good Dynamic Sitting Balance Ability Good Standing Balance and Reactions Static Standing Balance Ability Fair Dynamic Standing Balance Ability Fair M8 OT- IP Objective Assessments Start: 10/23/24 11:53 Freq: Status: Active Protocol: Document 10/23/24 11:53 [facility] (Rec: 10/23/24 12:03 [facility] [id number]) OT Gross Range of Motion Upper Extremity Range of Motion ROM Impairments WFL for needs. OT Strength Upper Extremity Strength Assessment Within Functional Limits M9 OT- IP Assessment and Plan Start: 10/23/24 11:53 Freq: Status: Active Protocol: Document 10/23/24 11:53 [facility] (Rec: 10/23/24 12:03 [facility] [id number]) OT Summary Assessment and Plan Potential Rehabilitation Potential Excellent Analytic Complexity at Evaluation Low Summary OT Impairments Pain,Strength,Balance, Functional Mobility,Dressing, Toileting,Bathing,Toilet Transfers,Shower Transfers, Activity Tolerance Progress Towards Goals Progressing Toward Goals Assessment Summary Pt low complexity and main barriers are steps, transitions, and will need his to assist him for all needs at this time. Pt looking to get a BSC and tub transfer bench. Pt to go home with 24 /7 assist and outpt PT. Pt agreed to get someone to help get him into the house. Goals Dressing Goal Minimal Assistance Toileting Goal Independent Bathing Goal Minimal Assistance Toilet Transfer Goal Independent Shower Transfer Goal Contact Guard Assistance Days to Meet Goals 7 Frequency of Treatment Other frequency 5x/week Treatment Plan OT Treatment Plan ADL Training,Functional Mobility,Patient/Family Education,Discharge Planning Discharge Recommendations OT Discharge Recommendations Home with 13/03 Assist Available,Outpatient PT Home Equipment Needs BSC, tub bench Transportation Needs at Discharge Private Vehicle
== END 2024-10-23 12:05 | disposition home or self-care (01) ==
LOC: OR 08:23 → AC 08:26
PROVIDERS: PCP Nurse Practitioner Family; Referring Provider Orthopaedic Surgery; Visit Provider Orthopaedic Surgery
PROC: 0SRC0JZ Replacement of Right Knee Joint with Synthetic Substitute, Open Approach (ICD-10-PCS; CPT 27447; principal; 2024-10-22 10:45)
DX: M17.11 Unilateral primary osteoarthritis, right knee (principal); G89.18 Other acute postprocedural pain; M25.761 Osteophyte, right knee
CPT/HCPCS: 27447; 36415; 64450; 73560; 85014; 85018; 97162; 97165; 97530; 97535; C1776; C1713; J0666; J0690; J1171; J2405; J2704; J2765; J3010